=== PATIENT | male | born 1970 | race Caucasian/White ===

== ENCOUNTER 2021-11-01 18:57 | Emergency (ER) | payer MEDICAID ==
[2021-11-01] MEDS: Albuterol 0.083% 2.5 MG/3 ML Neb Soln NEB ONE (19:51)
[2021-11-01] MEDS: Codeine/Promethazine 10-6.25 MG/5 ML Syrup 5 ML UD Cup PO ONE (20:10)
[2021-11-01 21:03] LABS: CORONAVIRUS COVID-19 NAA NEGATIVE (NEGATIVE)
[2021-11-01] MEDS: Albuterol 6.7 GM Inhaler INH ONE (21:19)
== END 2021-11-01 21:22 | disposition home or self-care (01) ==
LOC: JD.ED 18:57
DX: J40 Bronchitis, not specified as acute or chronic (principal); Z88.1 Allergy status to other antibiotic agents; Z91.048 Other nonmedicinal substance allergy status; Z79.899 Other long term (current) drug therapy; Z72.0 Tobacco use; Z20.822 Contact with and (suspected) exposure to COVID-19
CPT/HCPCS: 0240U; 94640; 99284; A9270

== ENCOUNTER 2024-01-08 18:23 | Emergency (ER) | payer MEDICARE, OTHER ==
[2024-01-08] MEDS ORDERED: Sodium Chloride 0.9% 10 ML Syringe FLUSH PRN (19:35)
[2024-01-08 19:58] LABS: BASOPHILS PERCENT AUTO 0.1 % (0.0-1.0); EOSINOPHILS PERCENT AUTO 0.1 % (0.0-6.0); HEMATOCRIT 44.9 % (42.0-52.0); HEMOGLOBIN 15.4 gm/dl (14.0-18.0); IMMATURE GRAN ABSOLUTE AUTO 0.03 K/mm3 (0.00-0.05); IMMATURE GRAN PERCENT AUTO 0.3 % (0.0-0.4); LYMPHOCYTES ABSOLUTE AUTO 0.3 K/mm3 (1.0-4.8); LYMPHOCYTES PERCENT AUTO 3.8 % (24.0-44.0); MEAN CORPUSCULAR HEMOGLOBIN 29.9 pg (28.0-32.0); MEAN CORPUSCULAR HGB CONC 34.3 g/dl (32.0-36.0); MEAN CORPUSCULAR VOLUME 87.2 fl (83.0-99.0); MEAN PLATELET VOLUME 9.1 fl (9.4-12.4); MONOCYTES ABSOLUTE AUTO 0.7 K/mm3 (0.0-0.8); MONOCYTES PERCENT AUTO 7.9 % (0.0-8.0); NEUTROPHILS PERCENT AUTO 87.8 % (41.0-71.0); PLATELET COUNT,PLT 212 K/mm3 (150-400); RED BLOOD CELL COUNT 5.15 M/mm3 (4.52-5.90); WHITE BLOOD CELL COUNT,WBC 9.06 K/mm3 (3.9-11.3)
[2024-01-08] MEDS: Albuterol/Ipratropium 3.0-0.5 MG/3 ML Neb Soln NEB ONE (20:15)
[2024-01-08 20:20] LABS: CORONAVIRUS COVID-19 NAA NEGATIVE (NEGATIVE); INFLUENZA A NAA NEGATIVE (NEGATIVE); RESPIRATORY SYNCYTIAL VIR NAA NEGATIVE (NEGATIVE)
[2024-01-08 20:21] LABS: A/G RATIO 1.3 (1-2); ALBUMIN 4.3 g/dl (3.4-5.0); BILIRUBIN TOTAL 0.9 mg/dL (0.2-1.0); C-REACTIVE PROTEIN 0.56 mg/dL (<0.30); CALCIUM 9.2 mg/dL (8.5-10.1); EST CRCL DRUG DOSING (CG) 80.74 mL/min; PROTEIN TOTAL,TP 7.5 g/dl (6.4-8.2)
[2024-01-08 20:24] LABS: LACTIC ACID 0.9 mmol/L (0.4-2.0)
[2024-01-08] MEDS: cefTRIAXone 2 GM in Sodium Chloride 0.9% 100 ML IV ONE (20:51)
== END 2024-01-08 21:49 | disposition home or self-care (01) ==
LOC: JD.ED 18:23
DX: J98.8 Other specified respiratory disorders (principal); R79.89 Other specified abnormal findings of blood chemistry; F17.210 Nicotine dependence, cigarettes, uncomplicated; Z88.1 Allergy status to other antibiotic agents; Z91.048 Other nonmedicinal substance allergy status; Z88.8 Allergy status to other drugs, medicaments and biological substances; Z79.899 Other long term (current) drug therapy
CPT/HCPCS: 0241U; 36415; 71045; 71045-26; 80053; 83605; 85025; 86140; 94640; 96365; 99284-25; J0696; J3490; J7620-GY